=== PATIENT | male | born 1945 | race Caucasian/White ===

== ENCOUNTER 2018-01-11 11:28 | Outpatient (CLI) | payer BC, OTHER, SELFPAY | END 2018-01-11 11:29 | disposition home or self-care (01) | LOC: BICRAD 11:28 | DX: M25.551 Pain in right hip (principal); M16.11 Unilateral primary osteoarthritis, right hip | CPT/HCPCS: 72100 ==

== ENCOUNTER 2018-06-17 08:30 | Outpatient (CLI) | payer BC ==
--- NOTE | 2018-06-17 15:18 | EKG ---
Test Reason : Blood Pressure : / mmHG Vent. Rate : 068 BPM Atrial Rate : 068 BPM P-R Int : 170 ms QRS Dur : 092 ms QT Int : 404 ms P-R-T Axes : 047 -04 046 degrees QTc Int : 429 ms Normal sinus rhythm Normal ECG No previous ECGs available Confirmed by GLO RAVI MD ([id number]) on 06/17/2018 3:17:44 PM Referred By: VIDHI Confirmed By:GLO RAVI MD
== END 2018-06-17 08:31 | disposition home or self-care (01) ==
LOC: LABBT 08:30
PROVIDERS: ATTEND Neurological Surgery
DX: Z01.810 Encounter for preprocedural cardiovascular examination (principal); M54.16 Radiculopathy, lumbar region
CPT/HCPCS: 93005; 93010

== ENCOUNTER 2018-06-20 06:19 | Day surgery (SDC) | payer BC ==
[2018-06-17 08:53] VITALS: BMI 25.2
--- NOTE | 2018-06-19 20:39 | HP ---
HISTORY OF PRESENT ILLNESS: Mr. Quintanilla presents for a protracted course of right L5 radiculopathy. M RI scan from [facility] reveals fairly severe lateral recess stenosis at L4-L5, [facility] is likely accountable for his pain. He treated this with injections, medications, and therapy a nd continues to have significant L5 radicular pain. He would like to move forward with surgery at th is time if possible. PAST MEDICAL HISTORY: Significant for diabetes, hyperlipidemia, and hypertension. CURRENT MEDICATIONS: Irbesartan, rosuvastatin, metformin, and Januvia. ALLERGIES: No known drug allergies. PAST SURGICAL HISTORY: Tonsillectomy. PHYSICAL EXAMINATION: The patient is alert and oriented x3. Gait is antalgic. Lower extremity annmarie r exam is normal. ASSESSMENT: Lumbar radiculopathy. PLAN: Dr. Fonseca met with the patient, reviewed imaging, and advocated for a right L4-L5 decompressio n. He explained to the patient the risks, benefits, and alternatives to the procedure. The patient expressed understanding and would like to move forward with surgery as discussed. I do believe the p atient is mentally competent and capable of making medical decisions for himself. We will move forwa rd with surgery as planned. Isauro Vuong PA-C dictating for Dr. Fonseca.
[2018-06-20] MEDS ORDERED: CEFAZOLIN/Water 2 GM/20 ML SYRINGE ONE ×2 (06:47→12:06)
[2018-06-20] MEDS ORDERED: Bupivacaine HCl 0.5%/Epinephrine 1:200,000/PF 30 ml Vial ONE (08:13)
[2018-06-20] MEDS ORDERED: Fentanyl 250 MCG/5 ML VIAL ONE (08:54)
--- NOTE | 2018-06-20 10:19 | OP ---
DATE OF PROCEDURE: 06/20/2018 SURGEON: Kevin Fonseca M.D. MANUAL TRAINING TEACHER: Isauro Vuong PA-C. INDICATION: Pain. DIAGNOSIS: Lumbar radiculopathy. PROCEDURE: Right L4-5 lumbar decompression and medial facetectomy, decompression. ANESTHESIA: General. TECHNIQUE: The patient was brought into the operating room and placed under general anesthesia. He was flipped from a supine to a prone position on the operating room table. A linear incision was elena nned over the L4-L5 segment. After prepping and draping and after an appropriate operative pause, th e incision was created. The soft tissues were swept right of midline. A self-retaining retractor wa s placed in the wound for optimal exposure. A C-arm image was obtained to confirm appropriate placem ent. High-speed cutting drill bit as well as 1, 2 and 3 mm Kerrisons were then used to perform a hurt inectomy along the inferior aspect of L4 and the superior aspect of L5. We decompressed the medial f acet joint until the lateral recesses were well decompressed. I was able to palpate the pedicle of L 5 and visualize the descending L5 nerve root which were then free from decompression at the completio n of the procedure. The wound was then irrigated. Hemostasis was maintained throughout. The wound was then closed in anatomic layers and a pressure dressing was applied. There were no known procedur al complications.
== END 2018-06-20 12:36 | disposition home or self-care (01) ==
LOC: SDC 06:19
PROVIDERS: ATTEND Neurological Surgery
PROC: 01NB0ZZ Release Lumbar Nerve, Open Approach (ICD-10-PCS; principal; 2018-06-20)
DX: M48.061 Spinal stenosis, lumbar region without neurogenic claudication (principal); I10 Essential (primary) hypertension; E11.9 Type 2 diabetes mellitus without complications; E78.5 Hyperlipidemia, unspecified; Z79.84 Long term (current) use of oral hypoglycemic drugs; Z79.82 Long term (current) use of aspirin; Z79.899 Other long term (current) drug therapy
CPT/HCPCS: 76001; 96374; J0131; J0670; J3010

== ENCOUNTER 2020-11-14 14:31 | Outpatient (CLI) | payer BC, MEDICARE ==
--- NOTE | 2020-11-14 15:46 | MRI ---
MRI lumbar spine noncontrast: HISTORY: Lumbar degenerative disc disease. Low back pain, radiating down left leg. Previous lumbar procedure 3 weeks ago. COMPARISON: 07/13/2019, 03/01/2018. FINDINGS: Appropriate T1 marrow signal intensity of the lumbar vertebra. Lumbar spine vertebral body height is maintained. There are type I Modic changes along the left aspect of the L5-S1 disc space. Stable mild leftward curvature of the lower lumbar spine. Appropriate signal intensity of the visualized solid organs and paraspinal muscles. Conus medullaris terminates at the superior aspect of L1. Incidental hemangioma at the L1 vertebral body. T12-L1:Adequate disc hydration. No significant central canal stenosis. Patent bilateral neural forami na. L1-L2:Minimal disc desiccation without significant loss of disc space height. Broad-based disc bulge mildly flattens the ventral thecal sac. Mild ligamentum flavum thickening and facet hypertrophy. Mild bilateral foraminal narrowing due to disc material. L2-L3:Adequate disc hydration. Broad-based disc bulge, ligamentum flavum thickening and facet hypertr ophy result in mild central canal stenosis. Increased narrowing of the left and right subarticular zone. Partial obscuration of bilateral traversing L2 nerve root secondary to disc material. Mild to m oderate right and mild left neural foraminal narrowing. L3-L4:Adequate disc hydration. No significant loss of disc space height. Broad-based disc bulge, liga mentum flavum thickening and facet hypertrophy result in moderate central canal stenosis. There is overall increased narrowing of the central spinal canal and increased narrowing of the left and right subarticular zones. Partial obscuration of bilateral traversing L5 nerve roots. There is stable severe bilateral facet hypertrophy. Asymmetric fluid in the right facet joint is once again demonstra arik. Mild to moderate right and mild left neural foraminal narrowing. There is 2.1 mm of anterolisthesis of L3 upon L4. L4-L5:Stable desiccation without significant loss of disc space height. Broad-based disc bulge is onc e again demonstrated. There is ligamentum flavum thickening and bilateral facet hypertrophy. There is fluid in both facet joints, unchanged. Stable mild to moderate central canal stenosis. Stable mild to moderate bilateral neural foraminal narrowing. L5-S1:Stable disc desiccation with mild loss of disc space height. There is a broad-based disc bulge. Disc material encroaches upon the left and right subarticular zone. There is partial obscuration of bilateral traversing S1 nerve roots, left greater than right. The degree of mass effect upon the t raversing S1 nerve root has slightly progressed. Mild right and moderate to severe left neural foraminal narrowing. IMPRESSION: Multilevel degenerative changes of the lumbar spine as detailed above. Results conveyed to Dr. Sosa 11/14/2020 at 4:24 PM Code CR Transcribed Date/Time: 11/14/2020 4:19 PM
== END 2020-11-14 14:32 | disposition home or self-care (01) ==
LOC: BICMRI 14:31
PROVIDERS: ATTEND Internal Medicine
DX: M51.36 Other intervertebral disc degeneration, lumbar region (principal); M47.816 Spondylosis without myelopathy or radiculopathy, lumbar region
CPT/HCPCS: 72148

== ENCOUNTER 2020-11-22 08:21 | Outpatient (CLI) | payer BC, MEDICARE | END 2020-11-22 08:22 | disposition home or self-care (01) | LOC: BICULT 08:21 | PROVIDERS: ATTEND Internal Medicine | DX: Z13.6 Encounter for screening for cardiovascular disorders (principal) | CPT/HCPCS: 76775 ==

== ENCOUNTER 2021-04-23 07:52 | Outpatient (CLI) | payer BC, MEDICARE ==
[2021-04-23 08:33] LABS: Bilirubin Neg (Negative); Blood, Urine Negative (Negative); Clarity Clear (Clear); Glucose, Urine (Dipstick) >=1000 mg/dL (Negative); Ketone, Urine Negative (Negative); Leukocyte Negative (Negative); Nitrite Negative (Negative); Protein, Urine (Dipstick) Negative (Neg-Trace); Urobilinogen Normal mg/dL (Less than 2)
[2021-04-23 08:35] LABS: Hemoglobin 16.7 g/dL (13.5-17.5); Mean Corpuscular HGB CONC 32.8 g/dL (32.0-36.0); Mean Corpuscular Hemoglobin 29.5 pg (27.0-33.0); Mean Corpuscular Volume 89.9 fl (81.2-95.1); Platelet Count 197 10x3/uL (150-450); RBC Distribution Width 14.2 % (11.5-14.5); Red Blood Cell (RBC) Count 5.66 10x6/uL (4.32-5.72); White Blood Cell (WBC) Count 9.1 10x3/uL (3.5-10.5)
[2021-04-23 08:53] LABS: Bacteria/HPF None Seen HPF (None Seen); RBC/HPF None Seen HPF (0-3); Squamous Epithelial None Seen HPF (0-3); WBC/HPF None Seen HPF (0-3)
[2021-04-23 09:26] LABS: Anion Gap 15 mmol/L (10-20); BUN (Urea Nitrogen) 25 mg/dL (8.4-25.7); Calc. Creatinine Clearance 0 mL/min (70-130); Calcium 10.2 mg/dL (7.8-10.44); Carbon Dioxide 26 mmol/L (23-31); Chloride 105 mmol/L (98-107); Glucose 142 mg/dL (83-110); Potassium 4.7 mmol/L (3.5-5.1); Sodium 141 mmol/L (136-145)
== END 2021-04-23 07:53 | disposition home or self-care (01) ==
LOC: LABBT 07:52
PROVIDERS: ATTEND Urology
DX: Z01.818 Encounter for other preprocedural examination (principal); R97.20 Elevated prostate specific antigen [PSA]
CPT/HCPCS: 80048; 81001; 85027; 87086

== ENCOUNTER 2021-04-25 06:20 | Day surgery (SDC) | payer BC, MEDICARE ==
[2021-04-23 16:18] VITALS: BMI 24.4
[2021-04-25] MEDS ORDERED: Lidocaine 1% (PF) 30 ML VIAL ONE (06:40)
[2021-04-25] MEDS ORDERED: cefTRIAXone\\ROCEPHIN 2 GM VIAL ONE (06:49)
[2021-04-25] MEDS ORDERED: Sodium Chloride 0.9% 100 ML ONE (06:49)
[2021-04-25] MEDS ORDERED: PROPOFOL 20 ML ONE (07:14)
[2021-04-25] MEDS ORDERED: Fentanyl 100 MCG/2 ML VIAL ONE (07:14)
[2021-04-25] MEDS ORDERED: Lidocaine 1% PF 5 ML VIAL ONE (07:32)
[2021-04-25] MEDS ORDERED: PROPOFOL 200 MG/20 ML VIAL ONE (07:32)
== END 2021-04-25 09:02 | disposition home or self-care (01) ==
LOC: SDC 06:20
PROVIDERS: ATTEND Urology
PROC: 0VB03ZX Excision of Prostate, Percutaneous Approach, Diagnostic (ICD-10-PCS; principal; 2021-04-25)
DX: C61 Malignant neoplasm of prostate (principal); N40.1 Benign prostatic hyperplasia with lower urinary tract symptoms; R39.15 Urgency of urination; E11.9 Type 2 diabetes mellitus without complications; E78.5 Hyperlipidemia, unspecified; I10 Essential (primary) hypertension; F17.290 Nicotine dependence, other tobacco product, uncomplicated; Z86.16 Personal history of COVID-19; Z79.82 Long term (current) use of aspirin; Z79.899 Other long term (current) drug therapy; Z79.84 Long term (current) use of oral hypoglycemic drugs
CPT/HCPCS: 88305; 88344; J0696; J2001; J2704; J3010; J3490

== ENCOUNTER 2023-05-05 05:35 | Day surgery (SDC) | payer BC ==
[2023-04-20 08:47] VITALS: BMI 25.7
[2023-05-05] MEDS ORDERED: Levofloxacin 500 mg/D5W 100 ml Premix Bag ONE (06:43)
[2023-05-05] MEDS ORDERED: Sodium Chloride 0.9% 100 ML ONE (07:20)
[2023-05-05] MEDS ORDERED: cefTRIAXone (ROCEPHIN) 2 GM VIAL ONE (07:20)
[2023-05-05] MEDS ORDERED: fentaNYL 50 mcg/mL 1 mL Vial ONE (07:27)
[2023-05-05] MEDS ORDERED: Midazolam HCl 2 mg/2 ml Vial ONE (07:27)
[2023-05-05] MEDS ORDERED: PROPOFOL 200 MG/20 ML VIAL ONE (07:35)
[2023-05-05] MEDS ORDERED: Phenazopyridine HCl 100 MG TAB ONE (09:07)
== END 2023-05-05 09:22 | disposition home or self-care (01) ==
LOC: SDC 05:35
PROVIDERS: ATTEND Urology
PROC: 0VB08ZX Excision of Prostate, Via Natural or Artificial Opening Endoscopic, Diagnostic (ICD-10-PCS; principal; 2023-05-05)
DX: N42.31 Prostatic intraepithelial neoplasia (principal); C61 Malignant neoplasm of prostate; N40.1 Benign prostatic hyperplasia with lower urinary tract symptoms; R81 Glycosuria; E11.9 Type 2 diabetes mellitus without complications; R97.20 Elevated prostate specific antigen [PSA]; I10 Essential (primary) hypertension; M51.36 Other intervertebral disc degeneration, lumbar region; N52.01 Erectile dysfunction due to arterial insufficiency; R01.1 Cardiac murmur, unspecified; E78.5 Hyperlipidemia, unspecified; M19.90 Unspecified osteoarthritis, unspecified site; K57.90 Diverticulosis of intestine, part unspecified, without perforation or abscess without bleeding; I35.0 Nonrheumatic aortic (valve) stenosis; Z90.89 Acquired absence of other organs; F17.210 Nicotine dependence, cigarettes, uncomplicated; Z79.82 Long term (current) use of aspirin; Z79.899 Other long term (current) drug therapy; Z88.8 Allergy status to other drugs, medicaments and biological substances; Z90.79 Acquired absence of other genital organ(s)
CPT/HCPCS: 36416; C1747; G0416; J0696; J1956; J2250; J2704; J3010; J3490

== ENCOUNTER 2023-05-18 08:00 | Inpatient (IN) | payer BC, MEDICARE ==
[2023-05-18 08:49] LABS: Hemoglobin 16.4 g/dL (13.5-17.5); Mean Corpuscular HGB CONC 32.5 g/dL (32.0-36.0); Mean Corpuscular Hemoglobin 29.4 pg (27.0-33.0); Mean Corpuscular Volume 90.7 fl (81.2-95.1); Mean Platelet Volume 10.5 fl (7.4-10.4); Platelet Count 163 10x3/uL (150-450); RBC Distribution Width 14.1 % (11.5-14.5); Red Blood Cell (RBC) Count 5.57 10x6/uL (4.32-5.72); White Blood Cell (WBC) Count 6.5 10x3/uL (3.5-10.5)
[2023-05-18 09:24] LABS: Anion Gap 16 mmol/L (10-20); BUN (Urea Nitrogen) 31 mg/dL (8.4-25.7); Calc. Creatinine Clearance 0 mL/min (70-130); Calcium 9.5 mg/dL (7.8-10.44); Carbon Dioxide 25 mmol/L (23-31); Chloride 106 mmol/L (98-107); Estimated GFR 55; Glucose 160 mg/dL (83-110); Potassium 4.9 mmol/L (3.5-5.1); Sodium 142 mmol/L (136-145)
[2023-05-19] MEDS ORDERED: Albumin 5% 500 ML ONE (06:28)
[2023-05-19] MEDS ORDERED: Fentanyl 250 MCG/5 ML VIAL ONE (06:41)
[2023-05-19] MEDS ORDERED: Dexmedetomidine 200 MCG/2 ML VIAL ONE (06:41)
[2023-05-19] MEDS ORDERED: Midazolam HCl 2 mg/2 ml Vial ONE (06:41)
[2023-05-19] MEDS ORDERED: Heparin 10,000 UNITS/1 ML VIAL 30,000 UNITS in Sodium Chloride 0.9% 1,000 ML FS SCH (06:45)
[2023-05-19] MEDS ORDERED: Ondansetron ODT 4 MG TAB ONE (07:11)
[2023-05-19] MEDS ORDERED: Sodium Chloride 0.9% 100 ML ONE (07:17)
[2023-05-19] MEDS ORDERED: CEFAZOLIN 2 GM VIAL ONE (07:17)
[2023-05-19] MEDS ORDERED: Lidocaine 2% PF 100 mg/5 ml Syringe ONE (07:29)
[2023-05-19] MEDS ORDERED: Esmolol 100 MG/10 ML VIAL ONE (07:29)
[2023-05-19] MEDS ORDERED: Dexamethasone 20 MG/5 ML VIAL ONE (07:29)
[2023-05-19] MEDS ORDERED: Heparin 5,000 UNITS/ML VIAL ONE (07:29)
[2023-05-19] MEDS ORDERED: Protamine Sulfate 250 MG/25 ML VIAL ONE (07:29)
[2023-05-19] MEDS ORDERED: Glycopyrrolate 0.2 MG/ML 5 ML SYRINGE ONE (07:29)
[2023-05-19] MEDS ORDERED: Calcium Chloride 1 GM/10 ML Abboject SYRINGE ONE (07:29)
[2023-05-19] MEDS ORDERED: PROPOFOL 200 MG/20 ML VIAL ONE (07:29)
[2023-05-19] MEDS ORDERED: Vecuronium 10 MG VIAL ONE (07:29)
[2023-05-19] MEDS ORDERED: Mannitol 12.5 GM/50 ML ONE (07:29)
[2023-05-19] MEDS ORDERED: Sodium Bicarb 50 MEQ/50 ML VIAL ONE (07:29)
[2023-05-19] MEDS ORDERED: Vancomycin 1 GM VIAL ONE (07:29)
[2023-05-19] MEDS ORDERED: Potassium Chloride 60 MEQ/30 ML VIAL ONE (07:29)
[2023-05-19] MEDS ORDERED: Thrombin 5000 UNITS/5 ML VIAL ONE (07:29)
[2023-05-19] MEDS ORDERED: Heparin 30,000 units/30 ml VIAL ONE (07:29)
[2023-05-19] MEDS ORDERED: Lidocaine 1% PF 5 ML VIAL ONE (07:29)
[2023-05-19] MEDS ORDERED: Aminocaproic Acid 5 GM/20 ML VIAL ONE (07:29)
[2023-05-19] MEDS ORDERED: NEOSTIGMINE 3 MG/3 ML SYR 3 MG/3 ML SYRINGE ONE (07:29)
[2023-05-19] MEDS ORDERED: Norepinephrine 4 MG/4 ML VIAL ONE (07:29)
[2023-05-19] MEDS ORDERED: Cardioplegic Soln 1,000 ML BAG ONE (07:29)
[2023-05-19] MEDS ORDERED: Papaverine 60 MG/2 ML VIAL ONE (07:29)
[2023-05-19] MEDS ORDERED: Magnesium 5 GM/10 ML VIAL ONE (07:29)
[2023-05-19] MEDS ORDERED: Heparin 10,000 UNITS/ 10 ML VIAL ONE (08:34)
[2023-05-19] MEDS ORDERED: Insulin Regular 300 UNITS/3 ML VIAL ONE (08:51)
[2023-05-19] MEDS ORDERED: Promethazine HCl 25 MG/ML VIAL IM PRN (10:37)
[2023-05-19] MEDS ORDERED: Morphine 2 MG/ML VIAL SLOW IVP PRN (10:37)
[2023-05-19] MEDS ORDERED: Acetaminophen 325 MG TAB PO PRN (10:37)
[2023-05-19] MEDS ORDERED: Guaifenesin DM 100-10/5 ML UDCUP PO PRN (10:37)
[2023-05-19] MEDS ORDERED: DOPamine 400 MG/D5W 250 ML 250 ML IVPB PRN (10:37)
[2023-05-19] MEDS ORDERED: Potassium Chloride 20 MEQ/100 ML PREMIX BAG IVPB PRN (10:37)
[2023-05-19] MEDS ORDERED: hydrALAZINE 20 MG/ML VIAL SLOW IVP PRN (10:37)
[2023-05-19] MEDS ORDERED: fentaNYL 50 mcg/mL 1 mL Vial SLOW IVP PRN (10:37)
[2023-05-19] MEDS ORDERED: Ondansetron PF 4 MG/2 ML Vial IVP PRN (10:37)
[2023-05-19] MEDS ORDERED: Ipratropium/Albuterol 3 ML NEB NEB PRN (10:37)
[2023-05-19] MEDS ORDERED: NOREPINEPHRINE 8 MG/250 ML-D5W 250 ML IVPB PRN (10:37)
[2023-05-19] MEDS ORDERED: Post-Op Insulin Drip Protocol IVPB ONE (10:37)
[2023-05-19] MEDS ORDERED: Nitroglycerin 50 MG/250 ML BOT 250 ML IVPB PRN (10:37)
[2023-05-19] MEDS ORDERED: niCARdipine 25 MG in Sodium Chloride 0.9% 250 ML 250 ML IVPB PRN (10:37)
[2023-05-19] MEDS ORDERED: Hetastarch 6% 500 ML 500 ML IVPB PRN (10:37)
[2023-05-19] MEDS ORDERED: Mag-Al 1200 mg/1200 mg/30 ML UDCUP PO PRN (10:37)
[2023-05-19] MEDS ORDERED: Bisacodyl 5 MG TAB PO PRN (10:37)
[2023-05-19] MEDS ORDERED: Bisacodyl 10 MG SUPP PR PRN (10:37)
[2023-05-19] MEDS ORDERED: Dextrose 5% in Water 1,000 ML IV PRN (11:00)
[2023-05-19] MEDS ORDERED: Glucagon 1 MG/ML KIT SC PRN (11:00)
[2023-05-19] MEDS ORDERED: HUMULIN R 100 UNITS in Sodium Chloride 0.9% 100 ML IVPB SCH (11:00)
[2023-05-19] MEDS ORDERED: Dextrose 50% Abboject 50 ML SYRINGE SLOW IVP PRN (11:00)
[2023-05-19 11:10] LABS: #Eosinphils 0.1 thou/uL (0.0-0.7); #Monocytes 0.5 thou/uL (0.11-0.59); #Neutrophils 7.5 thou/uL (1.40-6.50); %Basophils 0.4 % (0.0-1.0); %Eosinophils 1.3 % (0.0-10.0); %Monocytes 5.5 % (0.0-10.0); %Neutrophils 78.5 % (42.0-75.0); Hemoglobin 12.3 g/dL (14.0-18.0); Mean Corpuscular HGB CONC 32.5 g/dL (32.0-36.0); Mean Corpuscular Hemoglobin 30.1 pg (27.0-31.0); Mean Corpuscular Volume 92.9 fl (78.0-98.0); Mean Platelet Volume 10.4 fL (7.4-10.4); Platelet Count 99 10x3/uL (130-400); RBC Distribution Width 14.1 % (11.5-14.5); Red Blood Cell (RBC) Count 4.08 mill/uL (4.70-6.10); White Blood Cell (WBC) Count 9.5 10x3/uL (4.8-10.8)
[2023-05-19] MEDS: fentaNYL 50 mcg/mL 1 mL Vial SLOW IVP PRN ×4 (11:15→22:11)
[2023-05-19 11:34] LABS: INR-International Normal Ratio 1.3; PTT 31.5 sec (22.9-36.1)
[2023-05-19 11:35] LABS: BUN (Urea Nitrogen) 22 mg/dL (8.4-25.7); Calc. Creatinine Clearance 88 mL/min (70-130); Calcium 7.1 mg/dL (7.8-10.44); Carbon Dioxide 24 mmol/L (23-31); Chloride 118 mmol/L (98-107); Estimated GFR 91; Glucose 197 mg/dL (83-110); Potassium 3.9 mmol/L (3.5-5.1); Sodium 137 mmol/L (136-145)
[2023-05-19] MEDS: Lactated Ringer's 1,000 ML IV SCH ×2 (11:48→19:37)
[2023-05-19] MEDS: Ketorolac Tromethamine 30 MG/ML VIAL IVP SCH ×3 (11:50→23:28)
[2023-05-19 12:40] LABS: Actual Bicarbonate (HCO3a) 21.6 mEq/L (22-28); Analyzer IN Cardio OR; Base Excess (BEa) -1.8 mEq/L (-2.0 to +3.0); CO2 Tension 33.4 mmHg (35.0-45.0); Calcium, Ionized (arterial) 1.14 mmol/L (1.12-1.30); Carboxyhemoglobin (COHb) 1.4 gm% (0.0-3.0); Hematocrit-ABG 45 % (42.0-52.0); Hemoglobin (Hb) 15.2 g/dL (14.0-18.0); O2 Tension (PaO2), arterial 441.4 mmHg (> 70.0); Potassium - ABG Lab 3.94 mmol/L (3.70-5.30); pH, Arterial 7.429 (7.35-7.45)
[2023-05-19 12:40] LABS: Actual Bicarbonate (HCO3a) 20.6 mEq/L (22-28); Analyzer IN Cardio OR; Base Excess (BEa) -3.5 mEq/L (-2.0 to +3.0); CO2 Tension 34.2 mmHg (35.0-45.0); Calcium, Ionized (arterial) 1.08 mmol/L (1.12-1.30); Carboxyhemoglobin (COHb) 0.6 gm% (0.0-3.0); Hematocrit-ABG 42 % (42.0-52.0); Hemoglobin (Hb) 14.3 g/dL (14.0-18.0); O2 Tension (PaO2), arterial 438.3 mmHg (> 70.0); Potassium - ABG Lab 4.43 mmol/L (3.70-5.30); pH, Arterial 7.397 (7.35-7.45)
[2023-05-19 12:40] LABS: Actual Bicarbonate (HCO3a) 23.1 mEq/L (22-28); Analyzer IN Cardio OR; Base Excess (BEa) -0.6 mEq/L (-2.0 to +3.0); CO2 Tension 34.8 mmHg (35.0-45.0); Hematocrit-ABG 34 % (42.0-52.0); Hemoglobin (Hb) 11.6 g/dL (14.0-18.0); O2 Tension (PaO2), arterial 409.7 mmHg (> 70.0); Potassium - ABG Lab 3.74 mmol/L (3.70-5.30)
[2023-05-19 12:41] LABS: Actual Bicarbonate (HCO3v) 24.7 mEq/L (22-28); Analyzer IN Cardio OR; Base Excess -1.1 mEq/L (-2.0 to +3.0); Calcium, Ionized (venous) 1.04 mmol/L (1.16-1.32); Chloride (VBG) 108 mmol/L (98-106); Hematocrit-VBG 35 % (42.0-52.0); Hemoglobin (Hb) 11.8 g/dL (12.6-17.4); Potassium (VBG) 4.35 mmol/L (3.70-5.30); Sodium 138.2 mmol/L (133-146); pH (venous) 7.352 (7.32-7.43)
[2023-05-19 12:42] LABS: Actual Bicarbonate (HCO3a) 21.6 mEq/L (22-28); Analyzer IN Cardio OR; Base Excess (BEa) -5.6 mEq/L (-2.0 to +3.0); CO2 Tension 49.4 mmHg (35.0-45.0); Calcium, Ionized (arterial) 1.12 mmol/L (1.12-1.30); Carboxyhemoglobin (COHb) 0.4 gm% (0.0-3.0); Hematocrit-ABG 38 % (42.0-52.0); Hemoglobin (Hb) 12.9 g/dL (14.0-18.0); O2 Tension (PaO2), arterial 466.8 mmHg (> 70.0); Potassium - ABG Lab 4.09 mmol/L (3.70-5.30); pH, Arterial 7.259 (7.35-7.45)
[2023-05-19 12:42] LABS: Puncture Site Arterial Line
[2023-05-19 12:43] LABS: Puncture Site Arterial Line
[2023-05-19 12:43] LABS: Puncture Site Arterial Line
[2023-05-19 12:44] LABS: Puncture Site Arterial Line
[2023-05-19 16:28] LABS: Hemoglobin 11.7 g/dL (14.0-18.0)
[2023-05-19] MEDS: HYDROcodone/Acetaminophen 5/325 mg Tablet PO PRN ×2 (16:45→21:32)
[2023-05-19 16:46] LABS: Potassium 4.8 mmol/L (3.5-5.1)
[2023-05-19] MEDS: CEFAZOLIN 2 GM in Sodium Chloride 0.9% 100 ML IVPB SCH (16:46)
[2023-05-19] MEDS ORDERED: Lactated Ringer's 500 ML IV SCH (17:45)
[2023-05-19 18:50] VITALS: BMI 25.4
[2023-05-19] MEDS ORDERED: Famotidine/PF 20 mg/2ml Vial SLOW IVP SCH (21:00)
[2023-05-19] MEDS: Atorvastatin Calcium 20 MG TAB PO SCH (21:32)
[2023-05-20] MEDS: fentaNYL 50 mcg/mL 1 mL Vial SLOW IVP PRN ×3 (00:15→06:32)
[2023-05-20] MEDS: CEFAZOLIN 2 GM in Sodium Chloride 0.9% 100 ML IVPB SCH ×2 (00:28→09:00)
[2023-05-20] MEDS: HYDROcodone/Acetaminophen 5/325 mg Tablet PO PRN ×5 (01:17→20:42)
[2023-05-20 04:27] LABS: #Monocytes 0.7 thou/uL (0.11-0.59); #Neutrophils 5.1 thou/uL (1.40-6.50); %Basophils 0.4 % (0.0-1.0); %Eosinophils 0.1 % (0.0-10.0); %Lymphocytes 12.3 % (21.0-51.0); %Monocytes 11.1 % (0.0-10.0); %Neutrophils 75.5 % (42.0-75.0); Hemoglobin 10.3 g/dL (14.0-18.0); Mean Corpuscular HGB CONC 31.9 g/dL (32.0-36.0); Mean Corpuscular Hemoglobin 29.9 pg (27.0-31.0); Mean Corpuscular Volume 93.6 fl (78.0-98.0); Mean Platelet Volume 10.8 fL (7.4-10.4); RBC Distribution Width 14.6 % (11.5-14.5); Red Blood Cell (RBC) Count 3.45 mill/uL (4.70-6.10); White Blood Cell (WBC) Count 6.7 10x3/uL (4.8-10.8)
[2023-05-20 04:28] LABS: Platelet Count 100 10x3/uL (130-400)
[2023-05-20 05:13] LABS: Anion Gap 14 mmol/L (10-20); BUN (Urea Nitrogen) 17 mg/dL (8.4-25.7); Calc. Creatinine Clearance 79 mL/min (70-130); Calcium 7.7 mg/dL (7.8-10.44); Carbon Dioxide 19 mmol/L (23-31); Chloride 113 mmol/L (98-107); Estimated GFR 85; Glucose 113 mg/dL (83-110); Potassium 4.2 mmol/L (3.5-5.1); Sodium 142 mmol/L (136-145)
[2023-05-20] MEDS: Ketorolac Tromethamine 30 MG/ML VIAL IVP SCH ×4 (05:29→23:19)
[2023-05-20] MEDS: Aspirin 325 MG TAB PO SCH (09:09)
[2023-05-20] MEDS: Magnesium 2 GM/50 ML(in water) 2 GM in Premix Bag 1 BAG IVPB SCH (09:10)
[2023-05-20] MEDS: Famotidine 20 MG TAB PO SCH ×2 (09:12→20:43)
[2023-05-20] MEDS: Empagliflozin 25 MG TAB PO SCH (09:13)
[2023-05-20] MEDS: Polyethylene Glycol 3350 17 GM Packet PO SCH (09:13)
[2023-05-20] MEDS ORDERED: Insulin Glargine 30 UNITS/0.3 ML VIAL SC PRN (10:52)
[2023-05-20] MEDS: Lactated Ringer's 1,000 ML IV SCH (10:57)
[2023-05-20] MEDS: Insulin Regular 300 UNITS/3 ML VIAL SC PRN ×4 (11:15→23:25)
[2023-05-20] MEDS: Atorvastatin Calcium 20 MG TAB PO SCH (20:42)
[2023-05-21] MEDS: HYDROcodone/Acetaminophen 5/325 mg Tablet PO PRN ×4 (03:29→21:10)
[2023-05-21 04:04] LABS: #Eosinphils 0.1 thou/uL (0.0-0.7); #Monocytes 0.9 thou/uL (0.11-0.59); #Neutrophils 4.5 thou/uL (1.40-6.50); %Basophils 0.3 % (0.0-1.0); %Eosinophils 1.5 % (0.0-10.0); %Lymphocytes 17.7 % (21.0-51.0); %Neutrophils 66.9 % (42.0-75.0); Hemoglobin 10.4 g/dL (14.0-18.0); Mean Corpuscular HGB CONC 31.4 g/dL (32.0-36.0); Mean Corpuscular Hemoglobin 29.7 pg (27.0-31.0); Mean Corpuscular Volume 94.6 fl (78.0-98.0); RBC Distribution Width 14.8 % (11.5-14.5); White Blood Cell (WBC) Count 6.7 10x3/uL (4.8-10.8)
[2023-05-21 04:29] LABS: Anion Gap 12 mmol/L (10-20); BUN (Urea Nitrogen) 18 mg/dL (8.4-25.7); Calc. Creatinine Clearance 72 mL/min (70-130); Calcium 8.4 mg/dL (7.8-10.44); Carbon Dioxide 23 mmol/L (23-31); Chloride 109 mmol/L (98-107); Estimated GFR 74; Glucose 108 mg/dL (83-110); Potassium 4.3 mmol/L (3.5-5.1); Sodium 140 mmol/L (136-145)
[2023-05-21 04:56] LABS: Platelet Count 104 10x3/uL (130-400)
[2023-05-21] MEDS: Ketorolac Tromethamine 30 MG/ML VIAL IVP SCH (06:11)
[2023-05-21] MEDS ORDERED: Nitroglycerin 0.4 MG TAB (25 Tab Bottle) SL PRN (08:15)
[2023-05-21] MEDS ORDERED: Potassium Chloride 10 MEQ TAB PO SCH (08:30)
[2023-05-21] MEDS: Furosemide 40 MG TAB PO SCH (08:41)
[2023-05-21] MEDS: Famotidine 20 MG TAB PO SCH ×2 (08:41→21:09)
[2023-05-21] MEDS: Polyethylene Glycol 3350 17 GM Packet PO SCH (08:41)
[2023-05-21] MEDS: Aspirin 325 MG TAB PO SCH (08:41)
[2023-05-21] MEDS: Empagliflozin 25 MG TAB PO SCH (08:42)
[2023-05-21] MEDS: Magnesium 2 GM/50 ML(in water) 2 GM in Premix Bag 1 BAG IVPB SCH (08:43)
[2023-05-21] MEDS ORDERED: Dextrose 5% in Water 1,000 ML IV PRN (08:45)
[2023-05-21] MEDS ORDERED: Glucagon 1 MG/ML KIT SC PRN (08:45)
[2023-05-21] MEDS ORDERED: HUMULIN R 100 UNITS in Sodium Chloride 0.9% 100 ML IVPB SCH (08:45)
[2023-05-21] MEDS ORDERED: Dextrose 50% Abboject 50 ML SYRINGE SLOW IVP PRN (08:45)
[2023-05-21] MEDS: Atorvastatin Calcium 20 MG TAB PO SCH (21:09)
[2023-05-21] MEDS: Rosuvastatin 20 MG TAB PO SCH (21:10)
[2023-05-21] MEDS: Insulin Regular 300 UNITS/3 ML VIAL SC PRN (21:11)
[2023-05-21] MEDS ORDERED: Amiodarone 150 MG, Admixture Fee 1 EACH in Dextrose 5% in Water 100 ML IVPB SCH (23:45)
[2023-05-22] MEDS: Amiodarone 450 MG, Admixture Fee 1 EACH in Dextrose 5% in Water 250 ML IVPB SCH ×2 (00:22→10:36)
[2023-05-22 00:33] LABS: ALT (SGPT) 9 U/L (8-55); AST (SGOT) 19 U/L (5-34); Albumin 3.6 g/dL (3.4-4.8); Alkaline Phosphatase 52 U/L (40-110); Bilirubin, Direct 0.3 mg/dL (0.1-0.3); Bilirubin, Total 0.5 mg/dL (0.2-1.2); Magnesium 2.2 mg/dL (1.6-2.6); Protein, Total 5.4 g/dL (5.8-8.1)
[2023-05-22] MEDS ORDERED: Insulin Glargine 30 UNITS/0.3 ML VIAL SC PRN (08:31)
[2023-05-22] MEDS: Aspirin 325 MG TAB PO SCH (09:15)
[2023-05-22] MEDS: Potassium Chloride 10 MEQ TAB PO SCH (09:15)
[2023-05-22] MEDS: Famotidine 20 MG TAB PO SCH ×2 (09:16→21:06)
[2023-05-22] MEDS: Furosemide 40 MG TAB PO SCH (09:16)
[2023-05-22] MEDS: Empagliflozin 25 MG TAB PO SCH (09:16)
[2023-05-22] MEDS: Losartan 25 MG TAB PO SCH (09:17)
[2023-05-22] MEDS: Polyethylene Glycol 3350 17 GM Packet PO SCH (09:19)
[2023-05-22] MEDS ORDERED: cloNIDine 0.1 MG TAB PO PRN (19:57)
[2023-05-22] MEDS: Amiodarone 200 MG TAB PO SCH (21:06)
[2023-05-22] MEDS: Atorvastatin Calcium 20 MG TAB PO SCH (21:06)
[2023-05-22] MEDS: Rosuvastatin 20 MG TAB PO SCH (21:07)
[2023-05-22] MEDS: Metoprolol Tartrate 25 MG TAB PO SCH (21:07)
[2023-05-22] MEDS: Insulin Regular 300 UNITS/3 ML VIAL SC PRN (21:07)
[2023-05-23 08:33] VITALS: BP 130/64; TEMP 98
[2023-05-23] MEDS: Aspirin 325 MG TAB PO SCH (08:33)
[2023-05-23] MEDS: Amiodarone 200 MG TAB PO SCH (08:34)
[2023-05-23] MEDS: Empagliflozin 25 MG TAB PO SCH (08:34)
[2023-05-23] MEDS: Famotidine 20 MG TAB PO SCH (08:34)
[2023-05-23] MEDS: Furosemide 40 MG TAB PO SCH (08:34)
[2023-05-23] MEDS: Losartan 25 MG TAB PO SCH (08:34)
[2023-05-23] MEDS: Potassium Chloride 10 MEQ TAB PO SCH (08:34)
[2023-05-23] MEDS: Metoprolol Tartrate 25 MG TAB PO SCH (08:34)
[2023-05-23] MEDS: Polyethylene Glycol 3350 17 GM Packet PO SCH (09:13)
== END 2023-05-23 10:31 | disposition home or self-care (01) | DRG 236 ==
LOC: EEVIPCON 05-19 06:07 → SURG A 05-19 06:07 → CCU 05-19 10:11 → 2NO 05-21 12:51
PROVIDERS: ADMIT Thoracic Surgery (Cardiothoracic Vascular Surgery); ATTEND Thoracic Surgery (Cardiothoracic Vascular Surgery)
PROC: 02110Z9 Bypass Coronary Artery, Two Arteries from Left Internal Mammary, Open Approach (ICD-10-PCS; principal; 2023-05-19)
PROC: 021009W Bypass Coronary Artery, One Artery from Aorta with Autologous Venous Tissue, Open Approach (ICD-10-PCS; 2023-05-19)
PROC: 06BQ3ZZ Excision of Left Saphenous Vein, Percutaneous Approach (ICD-10-PCS; 2023-05-19)
PROC: 06BP3ZZ Excision of Right Saphenous Vein, Percutaneous Approach (ICD-10-PCS; 2023-05-19)
PROC: 02L70CK Occlusion of Left Atrial Appendage with Extraluminal Device, Open Approach (ICD-10-PCS; 2023-05-19)
PROC: 5A1221Z Performance of Cardiac Output, Continuous (ICD-10-PCS; 2023-05-19)
PROC: 4A133R1 Monitoring of Arterial Saturation, Peripheral, Percutaneous Approach (ICD-10-PCS; 2023-05-19)
PROC: 30233J1 Transfusion of Nonautologous Serum Albumin into Peripheral Vein, Percutaneous Approach (ICD-10-PCS; 2023-05-19)
DX: I25.10 Atherosclerotic heart disease of native coronary artery without angina pectoris (principal); E11.9 Type 2 diabetes mellitus without complications; I10 Essential (primary) hypertension; E78.00 Pure hypercholesterolemia, unspecified; E78.2 Mixed hyperlipidemia; I95.9 Hypotension, unspecified; I48.91 Unspecified atrial fibrillation; Z90.49 Acquired absence of other specified parts of digestive tract; Z98.890 Other specified postprocedural states
CPT/HCPCS: 36415; 36416; 36430; 71045; 80048; 80076; 82805; 82947; 83735; 84443; 85025; 85027; 85610; 85730; 86850; 86900; 86901; 93005; 93010; 93798; C1713; C1751; J0282; J1100; J1265; J1642; J1644; J1650; J1815; J1885; J2001; J2150; J2250; J2440; J2704; J2720; J3010; J3370; J3475; J3480; J3490; J7070; J7120; P9045; Q0162; S0017; S0028

== ENCOUNTER 2023-06-09 08:24 | Outpatient (CLI) | payer BC | END 2023-06-09 08:25 | disposition home or self-care (01) | LOC: NM 08:24 | PROVIDERS: ATTEND Urology | DX: C61 Malignant neoplasm of prostate (principal) | CPT/HCPCS: 78306; A9503 ==

== ENCOUNTER 2023-12-02 07:57 | Outpatient (CLI) | payer BC | END 2023-12-02 07:58 | disposition home or self-care (01) | LOC: CT 07:57 | PROVIDERS: ATTEND Urology | DX: C61 Malignant neoplasm of prostate (principal); K57.30 Diverticulosis of large intestine without perforation or abscess without bleeding; K59.00 Constipation, unspecified; N40.0 Benign prostatic hyperplasia without lower urinary tract symptoms; R93.89 Abnormal findings on diagnostic imaging of other specified body structures; Z90.79 Acquired absence of other genital organ(s) | CPT/HCPCS: 74178; 78306; A9503 ==

== ENCOUNTER → 2024-03-01 | Day surgery (SDC) | payer BC ==
[2024-02-16 09:03] VITALS: BMI 23.7
[~2024-03-01] MED LIST: LevoFLOXacin D5W 500 mg (100 mL) BAG ONE; Lidocaine 1% PF 5 ML VIAL ONE; Lidocaine 2% PF 5 ML VIAL ONE; PROPOFOL 20 ML ONE; PROPOFOL 200 MG/20 ML VIAL ONE; Phenazopyridine HCl 100 MG TAB ONE; Sodium Chloride 0.9% 100 ML ONE; Tamsulosin HCl 0.4 MG CAP ONE; cefTRIAXone (ROCEPHIN) 2 GM VIAL ONE; fentaNYL 50 mcg/mL 1 mL Vial ONE
== END ==
LOC: SDC 06:34
PROVIDERS: ATTEND Urology
PROC: 0V903ZX Drainage of Prostate, Percutaneous Approach, Diagnostic (ICD-10-PCS; principal; 2024-03-01)
DX: C61 Malignant neoplasm of prostate (principal); R97.20 Elevated prostate specific antigen [PSA]; E11.9 Type 2 diabetes mellitus without complications; E78.5 Hyperlipidemia, unspecified; N40.0 Benign prostatic hyperplasia without lower urinary tract symptoms; N42.31 Prostatic intraepithelial neoplasia; N52.01 Erectile dysfunction due to arterial insufficiency; I10 Essential (primary) hypertension; F17.210 Nicotine dependence, cigarettes, uncomplicated; Z90.89 Acquired absence of other organs; Z91.041 Radiographic dye allergy status; Z88.8 Allergy status to other drugs, medicaments and biological substances; Z79.84 Long term (current) use of oral hypoglycemic drugs; Z79.82 Long term (current) use of aspirin; Z79.899 Other long term (current) drug therapy
CPT/HCPCS: 88341; 88342; G0416; J0696; J1956; J2001; J2704; J3010; J3490

== ENCOUNTER 2024-08-31 09:13 | Outpatient (CLI) | payer BC | END 2024-08-31 09:14 | disposition home or self-care (01) | LOC: ULT 09:13 | PROVIDERS: ATTEND Internal Medicine | DX: R74.01 Elevation of levels of liver transaminase levels (principal) | CPT/HCPCS: 76705 ==